=== PATIENT | female | born 1980 | race Caucasian/White ===

== ENCOUNTER 2021-09-02 16:55 | Emergency (ER) | payer SELFPAY ==
[~2021-09-02] VITALS: Ht 172.7 cm; Wt 69.0 kg
[2021-09-02] MEDS ORDERED: XANAX0.5 MG PO (17:43)
[2021-09-02] MEDS ORDERED: ADDERALL 15 MG15 MG (17:43)
[2021-09-02] MEDS ORDERED: FAMOTIDINE20 MG PO (17:43)
[2021-09-02] MEDS ORDERED: NEURONTIN300 MG PO (17:43)
[2021-09-02] MEDS ORDERED: ONDANSETRON HCL INJ 2MG/ML 2ML 2 MG/ML VIAL IV STA (17:55)
[2021-09-02] MEDS ORDERED: SODIUM CHLORIDE 0.9% 1000ML 1,000 ML IV SCH (18:00)
[2021-09-02] MEDS ORDERED: CHLORDIAZEPOXIDE HCL 25 MG CAP PO ONE (18:15)
[2021-09-02] MEDS ORDERED: ONDANSETRON HCL INJ 2MG/ML 2ML 2 MG/ML VIAL ONE (18:29)
[2021-09-02] MEDS ORDERED: SODIUM CHLORIDE 0.9% 1000ML 1,000 ML ONE (18:30)
[2021-09-02] MEDS ORDERED: CHLORDIAZEPOXIDE HCL 25 MG CAP ONE (18:46)
[2021-09-02 18:58] LABS: SALICYLATE < 5.0 mg/dL (0-30)
[2021-09-02 21:36] VITALS: BP 114/77
[2021-09-03] MEDS ORDERED: DIAZEPAM 5 MG TAB PO ONE (04:30)
== END 2021-09-03 10:15 ==
LOC: FSED 17:07
DX: F10.239 Alcohol dependence with withdrawal, unspecified (principal); F10.231 Alcohol dependence with withdrawal delirium; R11.2 Nausea with vomiting, unspecified; R19.7 Diarrhea, unspecified; K21.9 Gastro-esophageal reflux disease without esophagitis; F41.9 Anxiety disorder, unspecified; F90.9 Attention-deficit hyperactivity disorder, unspecified type; Z20.822 Contact with and (suspected) exposure to COVID-19
CPT/HCPCS: 36415; 70450; 71046; 80048; 80076; 80307; 80320; 80329 ×2; 81003; 81025; 82553; 84484; 85025; 93005; 96374; 99284; J2405; J7030; U0002